=== PATIENT | male | born 1985 | race Caucasian/White ===

== ENCOUNTER 2025-05-15 09:08 | Emergency (ER) | payer OTHER, SELFPAY ==
[2025-05-15 09:10] VITALS: BP 162/99
--- NOTE | 2025-05-15 10:19 | ED.GENMED ---
History of Present Illness
General
Chief Complaint: Foreign Body Removal
Time Seen by Provider: 05/15/25 09:43
History of Present Illness
History of Present Illness:
40-year-old male without significant past medical history presenting to the emergency department for foreign body to the finger. Patient reports that he was installing drywall in a bathroom and accidentally got a nail through his left fourth digit.
He arrives with a nail in the distal aspect of the digit. Denies issues with range of motion. Last tetanus was 5 years ago. Denies additional acute medical complaints
Phy Exam
Physical Exam
Physical Exam:
General: Well-appearing, no clinical signs of dehydration, nontoxic and in no acute distress
HEENT: protecting airway
Neck: appears supple
CV: Normal heart rate
Resp: No accessory muscle use, no increased work of breathing
Abd: No distention
Extremities: Nail dislodged in the left fourth distal digit. No present bleeding
Neuro: alert, no focal neurologic deficit
: deferred
Rectal: deferred
Psych: Normal affect
Skin: Intact
Course
Orders/Labs/Results
Orders:
Orders
05/15/25 09:14
CR Finger(s)/thumb Min 2 Vw Lt Urgent
Comment:
Reason For Exam: nail in finger
Indicate Which Finger:: Index Finger
05/15/25 10:14
Tetanus/Diphth/Acelpertussis [Adacel] 0.5 ml IM .ONCE ONE
Vital Signs
Initial and Last Documented VS:
Initial Vital Signs
Temp Pulse Resp BP Pulse Ox
98.1 F 76 16 162/99 98
05/15/25 09:10 05/15/25 09:10 05/15/25 09:10 05/15/25 09:10 05/15/25 09:10
Last Documented Vital Signs
Temp Pulse Resp BP Pulse Ox
98.1 F 76 16 162/99 98
05/15/25 09:10 05/15/25 09:10 05/15/25 09:10 05/15/25 09:10 05/15/25 10:19
Procedures
Foreign Body Removal-Skin
Wound explored and foreign body removed?: Yes
Anesthesia: 1% lidocaine
Foreign body removed using: forceps
Foreign body removed: completely
MDM/Problems Addressed
MDM/Problems Addressed:
40-year-old male presenting to the emergency department with a nail dislodged in the left fourth digit. Vital signs on arrival are significant for hypertension.
On exam, large nail wedged in the left fourth digit. Does not appear to involve bone. Plan for x-ray imaging. No significant swelling. Range of motion and sensation intact. No erythema or infectious concerns.
10:25 - No bony involvement on x-ray imaging. Digital block performed with 1% lidocaine. Nail was removed with forceps without difficulty. Tetanus updated and patient was appropriately irrigated. No present indication for antibiotics. Feel
stable for discharge. Dressing applied. Return precautions discussed
*Pulse Oximetry
SaO2: 98
Patient hypoxic: no
*Critical Care Note
Total Time (30-74mins, 75-104mins- exclusive of procedures): Not Applicable
ED Attending Note
-
Portions of this chart may have been created with voice recognition software.� Occasional wrong word or��sound alike� substitutions may have occurred due to the inherent limitations of voice recognition software.
Discharge Plan
Departure
Patient Disposition: Home (Routine Discharge)
Date of Disposition: 05/15/25
Time of Disposition: 10:27
Patient with high blood pressure during this ER visit?: Yes
Condition: Good
Discharge Problem:
Foreign body finger
Instructions: Foreign Body in Skin (DC), BLOOD PRESSURE
Referrals:
Tom Metcalf MD [Family Provider, Family Practice]
Activity Restrictions/Additional Instructions:
You were seen in the emergency department for a foreign body to your finger
The foreign body was removed and your tetanus was updated. Please keep the area clean.
Please follow-up closely with your primary care physician.
Return to the emergency department for any worsening of your symptoms with development of swelling or redness to the finger, or any development of chest pain, difficulty breathing, abdominal pain with persistent vomiting and inability to tolerate
food or liquid by mouth (concern for dehydration), weakness, headache or confusion, fever greater than 100.4, or any additional symptoms that are concerning to you.
Thank you for choosing [facility].
Interventions
Interventions:
*Risk Screen - Suicide Last Done: 05/15/25 09:10
*Neglect/Abuse Screening Last Done: 05/15/25 09:10
Discharge Date and Time
Print Language: CUBAN
== END 2025-05-15 10:55 | disposition home or self-care (01) ==
LOC: EMR 09:08
PROVIDERS: EMERGENCY PHYSICIAN Student in an Organized Health Care Education/Training Program; FAMILY PHYSICIAN Family Medicine
DX: S60.455A Superficial foreign body of left ring finger, initial encounter (principal); W45.8XXA Other foreign body or object entering through skin, initial encounter; I10 Essential (primary) hypertension
CPT/HCPCS: 99283; 73140